=== PATIENT | female | born 1995 | race Caucasian/White ===

== ENCOUNTER 2017-05-18 12:43 | Inpatient (IN) | payer OTHER ==
[~2017-05-18] VITALS: Ht 160 cm; Wt 95.0 kg
[~2017-05-18 12:43] MED LIST: ACET325 PO; ALBU90OI INH; ALBU90OI61 INH; AMOCLA875 PO; AMOX500 PO; ANTOXYBENA OT; Abilify2 MG; B NATAL PO; BCP; BENZ100A PO; BENZ2 PO; BIRTH CONTROL; CEPH500 PO; CODACE30 PO; CRUTCH4 USE; DIPH50 PO; FAMO20 PO; HYDACE5 PO; HYDR1TAB94 PO; IBUP400 PO; IBUP600 PO; IBUP800 PO; IRON150C PO; MEDR150I IM; MISOPROSTOL PO; MONT10T PO; NAPR500 PO; NEOPOLHCSU OT; OMEP20ER PO; ONDA4ODT MM; OXYACE5T PO; PERM5TC TOP; PRED20 PO; PRENA1 CHEW TA1.4 MG; PROM25 PO; PROM25S PR; PSEU120ER PO; RANI150 PO; RXOXYACE PO; SERT25 PO; SPACER INH; SUCR1 PO; SULTRIDS PO; SUMA25 PO; TRAM50 PO; TRAZ50 PO; Tylenol325 MG PO; VITAMINS; Verotin-Gr Cap1 EACH; Verotin-Gr Cap1 EACH PO; Zithromax250 MG PO; Zofran4 MG PO; [UNRECOGNIZED DRUG - REMARK]
[2017-09-15] MEDS ORDERED: ACET325 PO (15:12)
[2017-09-15] MEDS ORDERED: B-6200 MG PO (15:12)
[2017-09-15 16:01] LABS: BASOPHILS ABSOLUTE AUTO 0.03 K/mm3 (0.00-0.23); BASOPHILS PERCENT AUTO 0 % (0-2); EOSINOPHILS ABSOLUTE AUTO 0.08 K/mm3 (0.00-0.68); EOSINOPHILS PERCENT AUTO 1 % (0-6); Hematocrit 34.5 % (33.0-51.0); Hemoglobin 12.1 g/dL (11.5-16.0); IMMATURE GRAN ABSOLUTE AUTO 0.15 K/mm3 (0.00-0.10); IMMATURE GRAN PERCENT AUTO 1 % (0-1); LYMPHOCYTES ABSOLUTE AUTO 2.39 K/mm3 (0.84-5.20); LYMPHOCYTES PERCENT AUTO 22 % (21-46); MONOCYTES ABSOLUTE AUTO 0.56 K/mm3 (0.16-1.47); MONOCYTES PERCENT AUTO 5 % (4-13); Mean Corpuscular HGB 31.8 pg (26.0-34.0); Mean Corpuscular HGB Conc 35.1 g/dL (31.5-36.5); Mean Corpuscular Volume 91 fL (80-100); Mean Platelet Volume 10.5 fL (9.1-12.4); NEUTROPHILS ABSOLUTE AUTO 7.47 K/mm3 (1.96-9.15); NEUTROPHILS PERCENT AUTO 70 % (41-73); Platelet Count 205 K/mm3 (150-400); RDW Coefficient Variation 12.4 % (11.7-14.2); RDW Standard Deviation 40.9 fL (35.1-46.3); White Blood Cell Count 10.68 K/mm3 (4.00-11.30)
[2017-09-18 06:04] LABS: Hematocrit 26.9 % (33.0-51.0); Hemoglobin 9.2 g/dL (11.5-16.0); Mean Corpuscular HGB 31.9 pg (26.0-34.0); Mean Corpuscular HGB Conc 34.2 g/dL (31.5-36.5); Mean Corpuscular Volume 93 fL (80-100); Mean Platelet Volume 10.4 fL (9.1-12.4); Platelet Count 154 K/mm3 (150-400); RDW Coefficient Variation 12.5 % (11.7-14.2); Red Blood Cell Count 2.88 M/mm3 (3.80-5.20); White Blood Cell Count 12.26 K/mm3 (4.00-11.30)
[2017-09-19] MEDS ORDERED: Percocet 5-3251 EACH PO (09:58)
[2017-09-19] MEDS ORDERED: IBUP800 PO (09:58)
== END 2017-09-19 11:50 | disposition home or self-care (01) | DRG 766 ==
LOC: BC 09-17 06:00
PROVIDERS: Obstetrics & Gynecology
PROC: 10D00Z1 Extraction of Products of Conception, Low, Open Approach (ICD-10-PCS; principal; 2017-09-17 07:30)
DX: O34.211 Maternal care for low transverse scar from previous cesarean delivery (principal); O69.81X0 Labor and delivery complicated by cord around neck, without compression, not applicable or unspecified; Z3A.39 39 weeks gestation of pregnancy; Z37.0 Single live birth; Z88.8 Allergy status to other drugs, medicaments and biological substances; Z91.040 Latex allergy status; Z91.011 Allergy to milk products
CPT/HCPCS: 36415; 85025; 85027; 86850; 86900; 86901; 90707; J0690; J1100; J1885; J2370; J2405; J2590; J2765; J3010; J7120

== ENCOUNTER → 2017-07-27 | Outpatient (CLI) | payer OTHER ==
[~2017-07-27] MED LIST changes: +B-6200 MG PO; +Percocet 5-3251 EACH PO
[2017-07-28 10:05] LABS: Candida species (DNA Probe) Negative (NEGATIVE); G. vaginalis (DNA Probe) Negative (NEGATIVE); T. vaginalis (DNA Probe) Negative (NEGATIVE)
== END ==
LOC: LAB 15:03
PROVIDERS: Obstetrics & Gynecology
DX: Z76.0 Encounter for issue of repeat prescription (principal)
CPT/HCPCS: 87480; 87510; 87660

== ENCOUNTER → 2017-08-26 | Outpatient (CLI) | payer OTHER ==
[~2017-08-26] MED LIST changes: -B-6200 MG PO; -Percocet 5-3251 EACH PO
== END ==
LOC: LAB 14:12 → LAB SHORT 14:12
DX: Z34.80 Encounter for supervision of other normal pregnancy, unspecified trimester (principal)
CPT/HCPCS: 87081; 87653

== ENCOUNTER 2019-05-21 12:53 | Emergency (ER) | payer OTHER ==
[~2019-05-21] VITALS: Ht 165.1 cm; Wt 98.4 kg
[~2019-05-21 12:53] MED LIST changes: +B-6200 MG PO; +Percocet 5-3251 EACH PO
[2019-05-21] MEDS ORDERED: Norco 5-325 Ta1 EACH PO (14:33)
[2019-05-21] MEDS ORDERED: Crutch1 EACH MISC (14:34)
== END 2019-05-21 14:38 | disposition home or self-care (01) ==
LOC: ER 12:53
DX: S99.911A Unspecified injury of right ankle, initial encounter (principal); S99.921A Unspecified injury of right foot, initial encounter; Z88.1 Allergy status to other antibiotic agents; Z91.040 Latex allergy status; Z88.8 Allergy status to other drugs, medicaments and biological substances; Z79.899 Other long term (current) drug therapy; F41.9 Anxiety disorder, unspecified; J45.909 Unspecified asthma, uncomplicated; F31.9 Bipolar disorder, unspecified; F43.10 Post-traumatic stress disorder, unspecified; K21.9 Gastro-esophageal reflux disease without esophagitis; F17.210 Nicotine dependence, cigarettes, uncomplicated; W19.XXXA Unspecified fall, initial encounter
CPT/HCPCS: 29515; 73610; 73630; 99283-25

== ENCOUNTER 2020-01-26 06:06 | Day surgery (SDC) | payer OTHER ==
[~2020-01-26] VITALS: Ht 165.1 cm; Wt 90.2 kg
[~2020-01-26 06:06] MED LIST changes: +ALBU3IS INH; +Crutch1 EACH MISC; +Norco 5-325 Ta1 EACH PO
--- NOTE | 2020-01-26 07:18 | NUR ---
01/26/20 0718 MARIELENA DANG HCG TEST PERFORM BY MARIELENA ALVARADO
--- NOTE | 2020-01-26 08:06 | NUR ---
01/26/20 0806 Derick Cooper 1 MG EPI ADDED TO THE FIRST BAG OF LR FOR IRRIGATION.
== END 2020-01-26 09:50 | disposition home or self-care (01) ==
LOC: ORSCSDS 06:06
PROVIDERS: Podiatrist Foot & Ankle Surgery
PROC: 0SBF4ZZ Excision of Right Ankle Joint, Percutaneous Endoscopic Approach (ICD-10-PCS; principal; 2020-01-26 07:30)
PROC: 0MQQ0ZZ Repair Right Ankle Bursa and Ligament, Open Approach (ICD-10-PCS; principal; 2020-01-26 07:30)
DX: M25.371 Other instability, right ankle (principal); M66.861 Spontaneous rupture of other tendons, right lower leg; G47.33 Obstructive sleep apnea (adult) (pediatric); F32.9 Major depressive disorder, single episode, unspecified; Z87.891 Personal history of nicotine dependence
CPT/HCPCS: C1713; J0171; J0690; J1100; J1885; J2250; J2405; J2704; J2765; J3010; J7120

== ENCOUNTER 2020-10-25 18:39 | Emergency (ER) | payer OTHER ==
[~2020-10-25] VITALS: Ht 165.1 cm; Wt 87.1 kg
== END 2020-10-25 21:03 | disposition home or self-care (01) ==
LOC: ER 18:39
DX: R51.9 Headache, unspecified (principal); Z79.899 Other long term (current) drug therapy; Z88.8 Allergy status to other drugs, medicaments and biological substances; Z91.040 Latex allergy status; Z88.1 Allergy status to other antibiotic agents; Z87.891 Personal history of nicotine dependence
CPT/HCPCS: 70480; 96372; 99284-25; A9270; J1885

== ENCOUNTER 2020-10-29 01:06 | Emergency (ER) | payer OTHER ==
[~2020-10-29] VITALS: Ht 165.1 cm; Wt 81.7 kg
== END 2020-10-29 05:30 | disposition home or self-care (01) ==
LOC: ER 01:06
DX: R00.2 Palpitations (principal); R07.9 Chest pain, unspecified; K21.9 Gastro-esophageal reflux disease without esophagitis; F17.210 Nicotine dependence, cigarettes, uncomplicated; J45.909 Unspecified asthma, uncomplicated; Z88.8 Allergy status to other drugs, medicaments and biological substances; Z91.040 Latex allergy status; Z88.0 Allergy status to penicillin; Z88.1 Allergy status to other antibiotic agents
CPT/HCPCS: 71045; 84484; 84703; 93005; 93010; 99285-25; A9270